=== PATIENT | male | born 1960 | race Two or more races ===

== ENCOUNTER 2020-04-05 10:22 | Inpatient (IN) | payer OTHER ==
[~2020-04-05] VITALS: Ht 172.7 cm; Wt 81.3 kg
[2020-04-05] MEDS ORDERED: METF-815 PO (10:28)
[2020-04-05] MEDS ORDERED: ROSU5TAB PO (10:28)
[2020-04-05] MEDS ORDERED: ASPIRIN 81MG TABLET PO ONE (10:45)
[2020-04-05 11:09] LABS: BASOPHILS % 0.9 % (0.0-2.0); EOSINOPHILS % 4.9 % (0.0-5.0); HEMATOCRIT. 36.5 % (42.0-52.0); HEMOGLOBIN. 12.5 g/dL (14.0-18.0); LYMPHOCYTES % 21.2 % (20.0-50.0); MEAN CORPUSCULAR HEMOGLOBIN 27.4 pg (28.0-32.0); MEAN CORPUSCULAR VOLUME 79.9 fL (80.0-94.0); MEAN PLATELET VOLUME 9.5 fl (7.4-10.4); MONOCYTES % 6.2 % (2.0-8.0); NEUTROPHILS % 66.8 % (40.0-76.0); PLATELET 168 x1000/uL (130-400); RED BLOOD CELL COUNT 4.57 mill/uL (4.7-6.1); RED CELL DISTRIBUTION WIDTH 16.7 % (11.6-14.6)
[2020-04-05 11:15] LABS: CHLORIDE 107 mEq/L (98-107)
[2020-04-05] MEDS ORDERED: ENOXAPARIN 40MG/0.4ML SYR SUBCUT ONE (16:15)
[2020-04-05] MEDS ORDERED: ASPIRIN 325MG EC TABLET PO ONE (20:15)
[2020-04-05] MEDS ORDERED: DIPHENHYDRAMINE 50MG/ML VIAL IV PRN (21:15)
[2020-04-05] MEDS ORDERED: ACETAMINOPHEN 325MG TABLET PO PRN ×2 (21:15)
[2020-04-05] MEDS ORDERED: DEXTROSE 50% WATER 50ML SYRINGE IV PRN (21:15)
[2020-04-05] MEDS ORDERED: DOCUSATE SODIUM 100MG CAPSULE PO PRN (21:15)
[2020-04-05] MEDS ORDERED: GUAIFENESIN 200MG/10ML SUGAR FREE UDC PO PRN (21:15)
[2020-04-05] MEDS ORDERED: HYDROCODONE/ACETAMINOPHEN 5/325MG TABLET PO PRN (21:15)
[2020-04-05] MEDS ORDERED: ONDANSETRON HCL 4MG/2ML INJ IV PRN (21:15)
[2020-04-05 21:55] VITALS: BP 162/65
[2020-04-05] MEDS ORDERED: ENOXAPARIN 40MG/0.4ML SYR SUBCUT SCH (22:00)
[2020-04-05 23:36] LABS: CREATINE KINASE 55 IU/L (39-308)
[2020-04-05 23:37] LABS: CREATINE KINASE MB FRACTION < 1.0 ng/mL (0.5-3.6)
[2020-04-06] VITALS (24 sets, daily range): BP systolic 112–175; BP diastolic 43–83
[2020-04-06] MEDS: AMLODIPINE 10MG TABLET PO SCH ×2 (00:04→09:00)
[2020-04-06] MEDS: SODIUM CHLORIDE 0.9% INJ 3ML FLUSH IVF SCH ×4 (00:05→21:11)
[2020-04-06 06:05] LABS: BASOPHILS % 0.8 % (0.0-2.0); EOSINOPHILS % 4.9 % (0.0-5.0); HEMATOCRIT. 36.2 % (42.0-52.0); HEMOGLOBIN. 12.3 g/dL (14.0-18.0); LYMPHOCYTES % 19.4 % (20.0-50.0); MEAN CORPUSCULAR HEMOGLOBIN 26.8 pg (28.0-32.0); MEAN CORPUSCULAR VOLUME 79.2 fL (80.0-94.0); MEAN PLATELET VOLUME 9.7 fl (7.4-10.4); MONOCYTES % 7.2 % (2.0-8.0); NEUTROPHILS % 67.7 % (40.0-76.0); PLATELET 159 x1000/uL (130-400); RED BLOOD CELL COUNT 4.57 mill/uL (4.7-6.1); RED CELL DISTRIBUTION WIDTH 16.3 % (11.6-14.6)
[2020-04-06 06:08] LABS: CHLORIDE 107 mEq/L (98-107)
[2020-04-06 06:16] LABS: LDL CHOLESTEROL 31 mg/dL (5-100)
[2020-04-06 06:17] LABS: CREATINE KINASE 50 IU/L (39-308); HDL CHOLESTEROL 32 mg/dL (40-59)
[2020-04-06 06:20] LABS: CREATINE KINASE MB FRACTION < 1.0 ng/mL (0.5-3.6)
[2020-04-06] MEDS: BLOOD SUGAR DIAGNOSTIC STRIP TEST SCH ×4 (07:04→21:09)
[2020-04-06] MEDS: INSULIN LISPRO 100 UNITS/ML SUBCUT SCH ×4 (07:04→21:00)
[2020-04-06] MEDS: CLOPIDOGREL 75MG TABLET PO SCH (08:00)
[2020-04-06] MEDS: ASPIRIN 81MG TABLET PO SCH (09:00)
[2020-04-06] MEDS ORDERED: ASPIRIN 81MG EC TABLET PO SCH (09:00)
[2020-04-06] MEDS ORDERED: LIDOCAINE HCL 1% 20ML VIAL (Pyxis) INJ ONE ×2 (09:58→12:43)
[2020-04-06] MEDS ORDERED: VERAPAMIL HCL 2.5 MG/1 ML 2ML VIAL IV ONE ×2 (09:58→12:44)
[2020-04-06] MEDS ORDERED: MIDAZOLAM HCL 2 MG/2 ML VIAL ONE ×2 (09:58→12:44)
[2020-04-06] MEDS ORDERED: FENTANYL CITRATE/PF 50MCG/ML 2ML VIAL ONE ×2 (09:58→12:43)
[2020-04-06] MEDS ORDERED: HEPARIN 1,000 UNITS PREMIX 0 ML IV ONE (09:59)
[2020-04-06] MEDS ORDERED: IODIXANOL 320MG/ML 100 ML BOTTLE IV ONE ×2 (09:59→12:44)
[2020-04-06] MEDS ORDERED: HEPARIN SODIUM 1,000 UNIT/1ML VIAL IV ONE (10:00)
[2020-04-06 12:00] LABS: T4 FREE 0.98 ng/dL (0.76-1.46)
[2020-04-06] MEDS ORDERED: SODIUM CHLORIDE 0.45% 500 ML IV ONE ×2 (14:15→23:00)
[2020-04-06] MEDS ORDERED: ATROPINE SULFATE 1MG/10ML SYR IV PRN (14:15)
[2020-04-06 17:05] LABS: CREATINE KINASE 66 IU/L (39-308)
[2020-04-06 17:10] LABS: CREATINE KINASE MB FRACTION < 1.0 ng/mL (0.5-3.6)
[2020-04-07] VITALS (15 sets, daily range): BP systolic 120–158; BP diastolic 51–82
[2020-04-07 05:45] LABS: BASOPHILS % 0.6 % (0.0-2.0); EOSINOPHILS % 2.6 % (0.0-5.0); HEMOGLOBIN. 11.7 g/dL (14.0-18.0); LYMPHOCYTES % 12.2 % (20.0-50.0); MEAN CORPUSCULAR HEMOGLOBIN 27.2 pg (28.0-32.0); MEAN CORPUSCULAR VOLUME 79.2 fL (80.0-94.0); MEAN PLATELET VOLUME 9.1 fl (7.4-10.4); MONOCYTES % 6.4 % (2.0-8.0); NEUTROPHILS % 78.2 % (40.0-76.0); PLATELET 144 x1000/uL (130-400); RED BLOOD CELL COUNT 4.29 mill/uL (4.7-6.1); RED CELL DISTRIBUTION WIDTH 16.4 % (11.6-14.6)
[2020-04-07] MEDS: BLOOD SUGAR DIAGNOSTIC STRIP TEST SCH ×2 (05:49→12:19)
[2020-04-07] MEDS: SODIUM CHLORIDE 0.9% INJ 3ML FLUSH IVF SCH ×2 (05:49→14:12)
[2020-04-07 05:51] LABS: CHLORIDE 107 mEq/L (98-107)
[2020-04-07 06:52] LABS: CLARITY URINE CLEAR (CLEAR); COLOR URINE YELLOW (YELLOW); KETONES URINE NEGATIVE (NEGATIVE); LEUKOCYTE ESTERASE URINE NEGATIVE (NEGATIVE); NITRITE URINE NEGATIVE (NEGATIVE); OCCULT BLOOD URINE NEGATIVE (NEGATIVE); PROTEIN URINE NEGATIVE (NEGATIVE); SPECIFIC GRAVITY URINE 1.017 (1.005-1.030); UROBILINOGEN URINE 0.2 E.U./dL (0.2-1.0)
[2020-04-07] MEDS: INSULIN LISPRO 100 UNITS/ML SUBCUT SCH ×2 (07:20→12:19)
[2020-04-07 07:24] LABS: *AMPHETAMINES SCREEN URINE NEGATIVE (NEGATIVE); *BARBITURATES SCREEN URINE NEGATIVE (NEGATIVE); *BENZODIAZEPINES SCREEN URINE PRESUMTIVE POSITIVE (NEGATIVE); *COCAINE SCREEN URINE NEGATIVE (NEGATIVE); METHADONE URINE SCREEN NEGATIVE (NEGATIVE); PHENCYCLIDINE URINE SCREEN NEGATIVE (NEGATIVE)
[2020-04-07 07:25] LABS: CANNABINOID URINE SCREEN NEGATIVE (NEGATIVE)
[2020-04-07 07:28] LABS: OPIATES URINE SCREEN NEGATIVE (NEGATIVE)
[2020-04-07] MEDS: ASPIRIN 81MG TABLET PO SCH (08:37)
[2020-04-07] MEDS: CLOPIDOGREL 75MG TABLET PO SCH (08:37)
[2020-04-07] MEDS: AMLODIPINE 10MG TABLET PO SCH (08:37)
[2020-04-07] MEDS ORDERED: IOHEXOL-350 100 ML BOTTLE ONE (12:30)
== END 2020-04-07 16:30 | disposition home or self-care (01) | DRG 282 ==
LOC: ER 10:42 → 8WST 19:53 → ENRESERV 21:08 → 3WST 04-06 14:16
PROVIDERS: ADMIT Family Medicine; ATTEND Family Medicine
PROC: 4A023N7 Measurement of Cardiac Sampling and Pressure, Left Heart, Percutaneous Approach (ICD-10-PCS; principal; 2020-04-06)
PROC: B2111ZZ Fluoroscopy of Multiple Coronary Arteries using Low Osmolar Contrast (ICD-10-PCS; 2020-04-06)
DX: I21.4 Non-ST elevation (NSTEMI) myocardial infarction (principal); E78.5 Hyperlipidemia, unspecified; I10 Essential (primary) hypertension; E78.00 Pure hypercholesterolemia, unspecified; E11.9 Type 2 diabetes mellitus without complications; D63.8 Anemia in other chronic diseases classified elsewhere; Z20.828 Contact with and (suspected) exposure to other viral communicable diseases; Z79.899 Other long term (current) drug therapy
CPT/HCPCS: 36415; 71045; 71275; 80048; 80053; 80061; 80305; 81003; 82550; 82553; 82962; 83036; 83880; 84439; 84443; 84484; 85025; 85347; 85379; 87426; 93005; 93306; 93458; 93571; 99285; C1769; C1887; C1893; J1644; J1650; J1815; J2250; J3010; J3490; Q9967